=== PATIENT | male | born 1975 | race Caucasian/White ===

== ENCOUNTER 2017-08-25 06:10 | Outpatient (CLI) | payer OTHER | END 2017-08-25 06:48 | disposition home or self-care (01) | LOC: LAB 06:10 | DX: Z11.3 Encounter for screening for infections with a predominantly sexual mode of transmission (principal); R53.1 Weakness ==

== ENCOUNTER → 2017-10-03 06:16 | Outpatient (CLI) | payer OTHER | END | disposition home or self-care (01) | LOC: LAB 06:16 | DX: R94.6 Abnormal results of thyroid function studies (principal); M54.2 Cervicalgia; M25.542 Pain in joints of left hand ==

== ENCOUNTER 2017-10-24 08:16 | Outpatient (CLI) | payer OTHER | END 2017-10-24 08:25 | disposition home or self-care (01) | LOC: SONOGRAMA 08:16 | DX: E04.1 Nontoxic single thyroid nodule (principal) ==

== ENCOUNTER 2018-07-13 06:15 | Outpatient (CLI) | payer OTHER | END 2018-07-13 06:20 | disposition home or self-care (01) | LOC: LAB 06:15 | DX: E78.49 Other hyperlipidemia (principal); R42 Dizziness and giddiness; Z00.00 Encounter for general adult medical examination without abnormal findings; Z11.3 Encounter for screening for infections with a predominantly sexual mode of transmission; Z11.4 Encounter for screening for human immunodeficiency virus [HIV]; J06.9 Acute upper respiratory infection, unspecified ==

== ENCOUNTER 2019-02-08 06:23 | Outpatient (CLI) | payer OTHER | END 2019-02-08 06:28 | disposition home or self-care (01) | LOC: LAB 06:23 | DX: E78.49 Other hyperlipidemia (principal); D64.89 Other specified anemias; N39.0 Urinary tract infection, site not specified; R10.84 Generalized abdominal pain; E03.8 Other specified hypothyroidism; E11.9 Type 2 diabetes mellitus without complications ==

== ENCOUNTER 2019-05-27 06:15 | Outpatient (CLI) | payer OTHER | END 2019-05-27 06:20 | disposition home or self-care (01) | LOC: LAB 06:15 | DX: E78.49 Other hyperlipidemia (principal) ==

== ENCOUNTER 2019-08-06 07:05 | Outpatient (CLI) | payer OTHER | END 2019-08-06 07:14 | disposition home or self-care (01) | LOC: NUCLEAR 07:05 | PROVIDERS: ATTEND Internal Medicine | DX: R07.89 Other chest pain (principal) | CPT/HCPCS: 93306; 78452; 93017; A9500 ==

== ENCOUNTER 2019-08-09 10:28 | Outpatient (CLI) | payer OTHER | END 2019-08-09 10:56 | disposition home or self-care (01) | LOC: RAD 10:28 | PROVIDERS: ATTEND Internal Medicine Pulmonary Disease | DX: J45.31 Mild persistent asthma with (acute) exacerbation (principal); J30.1 Allergic rhinitis due to pollen; G47.33 Obstructive sleep apnea (adult) (pediatric); K21.9 Gastro-esophageal reflux disease without esophagitis; R05 Cough ==

== ENCOUNTER 2019-09-06 07:06 | Outpatient (CLI) | payer OTHER | END 2019-09-06 07:13 | disposition home or self-care (01) | LOC: LAB 07:06 | PROVIDERS: ATTEND Internal Medicine Sports Medicine | DX: R97.20 Elevated prostate specific antigen [PSA] (principal); D64.89 Other specified anemias; E11.9 Type 2 diabetes mellitus without complications; E78.2 Mixed hyperlipidemia; I10 Essential (primary) hypertension; E03.8 Other specified hypothyroidism; E55.9 Vitamin D deficiency, unspecified; Z11.3 Encounter for screening for infections with a predominantly sexual mode of transmission; Z11.4 Encounter for screening for human immunodeficiency virus [HIV] ==

== ENCOUNTER 2019-10-23 11:25 | Outpatient (CLI) | payer OTHER | END 2019-10-23 13:50 | disposition home or self-care (01) | LOC: OFIC 805 11:25 | PROVIDERS: ATTEND Otolaryngology | DX: H60.8X2 Other otitis externa, left ear (principal); H61.22 Impacted cerumen, left ear ==

== ENCOUNTER → 2019-10-29 | Outpatient (CLI) | payer OTHER | END | disposition home or self-care (01) | LOC: PPH VACUNA | DX: Z23 Encounter for immunization (principal) ==

== ENCOUNTER 2019-11-12 08:09 | Outpatient (CLI) | payer OTHER | END 2019-11-12 09:07 | disposition home or self-care (01) | LOC: TOM 08:09 | PROVIDERS: ATTEND Internal Medicine | DX: G44.89 Other headache syndrome (principal) ==

== ENCOUNTER 2020-02-25 06:14 | Outpatient (CLI) | payer OTHER | END 2020-02-25 06:20 | disposition home or self-care (01) | LOC: LAB 06:14 | PROVIDERS: ATTEND Internal Medicine Sports Medicine | DX: D64.89 Other specified anemias (principal); E78.2 Mixed hyperlipidemia; E11.9 Type 2 diabetes mellitus without complications; E03.8 Other specified hypothyroidism; R97.20 Elevated prostate specific antigen [PSA]; E55.0 Rickets, active; E55.9 Vitamin D deficiency, unspecified ==

== ENCOUNTER → 2020-02-25 | Outpatient (CLI) | payer OTHER | END | disposition home or self-care (01) | LOC: SONOGRAMA 07:01 | PROVIDERS: ATTEND Internal Medicine Sports Medicine | DX: E04.2 Nontoxic multinodular goiter (principal) ==

== ENCOUNTER → 2020-06-18 06:11 | Outpatient (CLI) | payer OTHER | END | disposition home or self-care (01) | LOC: LAB 06:11 | PROVIDERS: ATTEND Urology | DX: N30.00 Acute cystitis without hematuria (principal) ==

== ENCOUNTER → 2020-07-27 10:19 | Outpatient (CLI) | payer OTHER | END | disposition home or self-care (01) | LOC: LAB 10:19 | PROVIDERS: ATTEND Radiology Diagnostic Radiology | DX: Z00.00 Encounter for general adult medical examination without abnormal findings (principal) ==

== ENCOUNTER → 2020-08-06 06:27 | Outpatient (CLI) | payer OTHER | END | disposition home or self-care (01) | LOC: LAB 06:27 | PROVIDERS: ATTEND Internal Medicine Sports Medicine | DX: D64.89 Other specified anemias (principal); E11.9 Type 2 diabetes mellitus without complications; E78.2 Mixed hyperlipidemia; I10 Essential (primary) hypertension; E03.8 Other specified hypothyroidism ==

== ENCOUNTER 2020-11-02 08:00 | Outpatient (CLI) | payer OTHER | END 2020-11-02 08:30 | disposition home or self-care (01) | LOC: PPH VACUNA 08:00 | PROVIDERS: ATTEND Emergency Medicine Pediatric Emergency Medicine | DX: Z23 Encounter for immunization (principal) ==

== ENCOUNTER 2021-01-13 07:54 | Outpatient (CLI) | payer OTHER | END 2021-01-13 07:58 | disposition home or self-care (01) | LOC: RX STUDY 07:54 | PROVIDERS: ATTEND Internal Medicine Gastroenterology | DX: K44.9 Diaphragmatic hernia without obstruction or gangrene (principal); R13.14 Dysphagia, pharyngoesophageal phase; R10.13 Epigastric pain; K21.00 Gastro-esophageal reflux disease with esophagitis, without bleeding ==

== ENCOUNTER → 2021-02-04 06:30 | Outpatient (CLI) | payer OTHER | END | disposition home or self-care (01) | LOC: LAB 06:30 | PROVIDERS: ATTEND Internal Medicine Sports Medicine | DX: E03.8 Other specified hypothyroidism (principal); E55.9 Vitamin D deficiency, unspecified; R97.20 Elevated prostate specific antigen [PSA] ==

== ENCOUNTER 2021-05-18 13:56 | Outpatient (CLI) | payer OTHER | END 2021-05-18 13:57 | disposition home or self-care (01) | LOC: RAD 13:56 | PROVIDERS: ATTEND Radiology Diagnostic Radiology | DX: M25.50 Pain in unspecified joint (principal) ==

== ENCOUNTER → 2021-07-21 06:57 | Outpatient (CLI) | payer OTHER | END | disposition home or self-care (01) | LOC: LAB 06:57 | PROVIDERS: ATTEND Internal Medicine Pulmonary Disease | DX: R05.9 Cough, unspecified (principal); R06.02 Shortness of breath; R50.9 Fever, unspecified; Z20.828 Contact with and (suspected) exposure to other viral communicable diseases ==

== ENCOUNTER 2021-08-06 06:12 | Outpatient (CLI) | payer OTHER | END 2021-08-06 06:14 | disposition home or self-care (01) | LOC: LAB 06:12 | PROVIDERS: ATTEND Internal Medicine Sports Medicine | DX: D64.9 Anemia, unspecified (principal); E11.9 Type 2 diabetes mellitus without complications; E78.2 Mixed hyperlipidemia; E03.8 Other specified hypothyroidism; E55.9 Vitamin D deficiency, unspecified ==

== ENCOUNTER 2021-10-12 13:00 | Outpatient (CLI) | payer OTHER | END 2021-10-12 13:03 | disposition home or self-care (01) | LOC: RAD 13:00 | PROVIDERS: ATTEND Radiology Diagnostic Radiology | DX: S62.608A Fracture of unspecified phalanx of other finger, initial encounter for closed fracture (principal) ==

== ENCOUNTER 2021-10-27 08:00 | Outpatient (CLI) | payer OTHER | END 2021-10-27 08:05 | disposition home or self-care (01) | LOC: PPH VACUNA 08:00 | PROVIDERS: ATTEND Emergency Medicine Pediatric Emergency Medicine | DX: Z23 Encounter for immunization (principal) ==

== ENCOUNTER 2022-02-08 06:08 | Outpatient (CLI) | payer OTHER | END 2022-02-08 06:09 | disposition home or self-care (01) | LOC: LAB 06:08 | PROVIDERS: ATTEND Internal Medicine Sports Medicine | DX: E55.9 Vitamin D deficiency, unspecified (principal); R97.20 Elevated prostate specific antigen [PSA]; D64.9 Anemia, unspecified; E11.9 Type 2 diabetes mellitus without complications; E78.2 Mixed hyperlipidemia; E03.8 Other specified hypothyroidism; I10 Essential (primary) hypertension ==

== ENCOUNTER 2022-02-09 07:25 | Outpatient (CLI) | payer OTHER | END 2022-02-09 07:31 | disposition home or self-care (01) | LOC: SONOGRAMA 07:25 | PROVIDERS: ATTEND Internal Medicine Sports Medicine | DX: E04.1 Nontoxic single thyroid nodule (principal) ==

== ENCOUNTER → 2022-04-12 | Outpatient (CLI) | payer OTHER | END | disposition home or self-care (01) | LOC: MRI 06:25 | PROVIDERS: ATTEND Internal Medicine Sports Medicine | DX: M54.2 Cervicalgia (principal); M54.10 Radiculopathy, site unspecified | CPT/HCPCS: 72141 ==

== ENCOUNTER → 2022-09-02 06:53 | Outpatient (CLI) | payer OTHER ==
[~2022-09-02 06:53] MED LIST: MEDROLPACK PO; NORFLEX100MG PO
== END | disposition home or self-care (01) ==
LOC: LAB 06:53
PROVIDERS: ATTEND Internal Medicine Sports Medicine
DX: D64.9 Anemia, unspecified (principal); E11.9 Type 2 diabetes mellitus without complications; E78.2 Mixed hyperlipidemia; I10 Essential (primary) hypertension; E03.8 Other specified hypothyroidism; Z11.3 Encounter for screening for infections with a predominantly sexual mode of transmission

== ENCOUNTER 2022-09-19 12:41 | Outpatient (CLI) | payer OTHER | END 2022-09-19 12:54 | disposition home or self-care (01) | LOC: LAB 12:41 | PROVIDERS: ATTEND Internal Medicine Gastroenterology | DX: Z11.52 Encounter for screening for COVID-19 (principal); Z20.822 Contact with and (suspected) exposure to COVID-19; Z20.828 Contact with and (suspected) exposure to other viral communicable diseases ==

== ENCOUNTER 2022-10-28 16:15 | Outpatient (CLI) | payer OTHER | END 2022-10-28 16:25 | disposition home or self-care (01) | LOC: PPH VACUNA 16:15 | PROVIDERS: ATTEND Emergency Medicine Pediatric Emergency Medicine | DX: Z23 Encounter for immunization (principal) ==

== ENCOUNTER 2023-03-03 07:03 | Outpatient (CLI) | payer OTHER ==
[2023-03-03 08:10] LABS: PH,URINE 8.5 (5.0-8.0); URINE APPEARANCE Clear; URINE BILIRRUBIN Negative (NEGATIVE); URINE BLOOD Negative; URINE COLOR Yellow; URINE GLUCOSE Negative (NEGATIVE); URINE LEUKOCYTE Trace; URINE NITRATE Negative; URINE PROTEIN 30 (NEGATIVE)
[2023-03-03 08:13] LABS: HEMATOCRIT 43.6 % (39.0-48.0); HEMOGLOBIN 14.8 g/dL (13-16.00); MEAN CELL VOLUME 79.7 fL (80.0-100.00); MEAN CORPUSCULAR HEMOGLOBIN 27.1 pg (27.00-32.0); PLATELET COUNT 297 K/uL (150-450); RED BLOOD COUNT 5.47 M/uL (4.00-6.00)
[2023-03-03 08:14] LABS: URINE RBC 3.5 uL (0.0-20.8); URINE WBC 2.1 uL (0.0-23.2)
[2023-03-03 08:24] LABS: URINE BACTERIA 2.5 uL (0.0-1933); URINE EPITHELIAL CELLS 1.3 uL (0.0-38.8)
[2023-03-03 08:42] LABS: BILIRUBIN TOTAL 0.47 mg/dL (0.3-1.2); CALCIUM 9.5 mg/dL (8.5-10.1); CHOL HDL RATIO 4.6 (0-5.0); CREATININE SERUM 1.34 mg/dL (0.70-1.30); GFR 57.14; GLOBULINA 3.2 G/DL (2.4-3.5); POTASSIUM 4.64 mEq/L (3.5-5.1); PROSTATIC SPECIFIC ANTIGEN 0.301 NG/ML (0.010-4.00); T4 FREE 0.93 NG/ML (0.76-1.46); TOTAL PROTEIN 7.2 gm/dL (6.4-8.2); TSH 0.804 uIU/mL (0.358-3.74)
== END 2023-03-03 07:04 | disposition home or self-care (01) ==
LOC: LAB 07:03
PROVIDERS: ATTEND Internal Medicine Sports Medicine
DX: D64.9 Anemia, unspecified (principal); E11.9 Type 2 diabetes mellitus without complications; E78.2 Mixed hyperlipidemia; I10 Essential (primary) hypertension; E03.8 Other specified hypothyroidism

== ENCOUNTER 2023-09-16 08:05 | Outpatient (CLI) | payer OTHER ==
[2023-09-16 09:32] LABS: PH,URINE 5.5 (5.0-8.0); URINE APPEARANCE Clear; URINE BILIRRUBIN Negative (NEGATIVE); URINE BLOOD Negative; URINE COLOR Yellow; URINE GLUCOSE Negative (NEGATIVE); URINE KETONE Negative (NEGATIVE); URINE LEUKOCYTE Negative; URINE NITRATE Negative; URINE PROTEIN Negative (NEGATIVE); URINE UROBILINOGEN 0.2 E.U./dl
[2023-09-16 09:35] LABS: URINE BACTERIA 7.5 uL (0.0-1933); URINE EPITHELIAL CELLS 2.4 uL (0.0-38.8); URINE RBC 2.2 uL (0.0-20.8)
[2023-09-16 09:43] LABS: HEMATOCRIT 44.1 % (39.0-48.0); HEMOGLOBIN 14.8 g/dL (13-16.00); MEAN CELL VOLUME 80.5 fL (80.0-100.00); MEAN CORPUSCULAR HGB CONC 33.6 g/dl (32.0-36.0); PLATELET COUNT 330 K/uL (150-450); RED BLOOD COUNT 5.48 M/uL (4.00-6.00); RED CELL DISTRIBUTION WIDTH 14.9 % (11.5-14.5)
[2023-09-16 10:23] LABS: ALBUMIN 4.1 gm/dL (3.4-5.0); BILIRUBIN TOTAL 0.42 mg/dL (0.3-1.2); CALCIUM 9.2 mg/dL (8.5-10.1); CHOL HDL RATIO 4.4 (0-5.0); CREATININE SERUM 1.21 mg/dL (0.70-1.30); GFR 64.28; GLOBULINA 3.2 G/DL (2.4-3.5); POTASSIUM 4.67 mEq/L (3.5-5.1); PROSTATIC SPECIFIC ANTIGEN 0.316 NG/ML (0.010-4.00); TOTAL PROTEIN 7.3 gm/dL (6.4-8.2); TSH 0.595 uIU/mL (0.358-3.74)
[2023-09-19 11:11] LABS: chla t Negative (Negative); neiss Negative (Negative)
== END 2023-09-16 08:12 | disposition home or self-care (01) ==
LOC: LAB 08:05
PROVIDERS: ATTEND Internal Medicine Sports Medicine
DX: D64.9 Anemia, unspecified (principal); E11.9 Type 2 diabetes mellitus without complications; E78.2 Mixed hyperlipidemia; I10 Essential (primary) hypertension; E03.8 Other specified hypothyroidism; Z11.3 Encounter for screening for infections with a predominantly sexual mode of transmission

== ENCOUNTER 2023-10-06 08:38 | Outpatient (CLI) | payer OTHER | END 2023-10-06 08:41 | disposition home or self-care (01) | LOC: RAD 08:38 | PROVIDERS: ATTEND Radiology Diagnostic Radiology | DX: J06.9 Acute upper respiratory infection, unspecified (principal) ==

== ENCOUNTER 2023-11-30 16:14 | Emergency (ER) | payer OTHER ==
[~2023-11-30] VITALS: Ht 170.2 cm; Wt 90.7 kg
[2023-11-30] MEDS ORDERED: NORFLEX100MG PO (16:37)
[2023-11-30] MEDS ORDERED: DICLOFENAC SODI75 MG PO (16:37)
[2023-11-30] MEDS ORDERED: TRIAMCINOLONE ACETONIDE 40 MG/ML VIAL IM ONE (16:45)
[2023-11-30] MEDS ORDERED: KETOROLAC TROMETHAMINE 60 MG VIAL IM ONE (16:45)
[2023-11-30 17:47] VITALS: BP 150/83; O2SAT 99
== END 2023-11-30 17:48 | disposition home or self-care (01) ==
LOC: ER 16:14
DX: M54.9 Dorsalgia, unspecified (principal); M62.830 Muscle spasm of back

== ENCOUNTER 2023-12-08 02:30 | Outpatient (CLI) | payer OTHER ==
[~2023-12-08 02:30] MED LIST changes: +DICLOFENAC SODI75 MG PO
== END 2023-12-08 03:00 | disposition home or self-care (01) ==
LOC: PPH VACUNA 02:30
PROVIDERS: ATTEND Emergency Medicine Pediatric Emergency Medicine
DX: Z23 Encounter for immunization (principal)

== ENCOUNTER 2024-09-24 10:22 | Outpatient (CLI) | payer OTHER ==
[2024-09-26 05:07] LABS: HEPATITIS A ANTIBODY IGG Negative (Negative); HEPATITIS B SURFACE ANTIBODY Reactive (.); HEPATITIS C VIRUS ANTIBODY Non Reactive (Non Reactive)
== END 2024-09-24 10:27 | disposition home or self-care (01) ==
LOC: LAB 10:22
DX: A64 Unspecified sexually transmitted disease (principal); B19.9 Unspecified viral hepatitis without hepatic coma

== ENCOUNTER 2024-10-03 06:44 | Outpatient (CLI) | payer OTHER ==
[2024-10-03 07:41] LABS: BASO % 0.4 % (0.1-1.2); EOS # 0.10 (0.04-0.54); EOS % 1.9 % (0.7-7.0); LYMPH # 1.49 (1.18-3.74); LYMPH % 28.0 % (19.3-53.1); MEAN PLATELET VOLUME 9.20 fl (9.4-12.4); MONO # 0.53 (0.24-0.82); MONO % 10.0 % (4.7-12.5); NEUT # 3.17 (1.56-6.13); NEUT % 59.5 % (34.0-71.1); RED CELL DISTRIBUTION WIDTH 14.0 % (11.6-14.4)
[2024-10-03 07:44] LABS: URINE APPEARANCE Clear; URINE BILIRRUBIN Negative (NEGATIVE); URINE BLOOD Negative; URINE COLOR Yellow; URINE GLUCOSE Negative (NEGATIVE); URINE KETONE Trace (NEGATIVE); URINE LEUKOCYTE Negative; URINE NITRATE Negative; URINE PROTEIN Trace (NEGATIVE); URINE UROBILINOGEN 1.0 E.U./dl
[2024-10-03 07:49] LABS: URINE BACTERIA 20.3 uL (0.0-1933); URINE EPITHELIAL CELLS 3.3 uL (0.0-38.8); URINE RBC 2.4 uL (0.0-20.8); URINE WBC 6.6 uL (0.0-23.2)
[2024-10-03 07:54] LABS: URINE CAST 0.14 uL (0.0-1.40)
[2024-10-03 08:32] LABS: ALT/SGPT 47.0 U/L (12-78); AST/SGOT 19.0 U/L (15-37); BILIRUBIN TOTAL 0.48 mg/dL (0.3-1.2); BUN CREA RATIO 12.0 (7.0-25.0); CHOL HDL RATIO 3.3 (0-5.0); CREATININE SERUM 1.27 mg/dL (0.70-1.30); GFR 60.53; GLOBULINA 3.3 G/DL (2.4-3.5); GLUCOSE FASTING 93.0 mg/dL (65-100); HDL 40.0 mg/dl (40-60); LDL 75.0 mg/dl (0-130); OSMOLALITY SERUM 287.0 MOSM/KG (275-295); PROSTATIC SPECIFIC ANTIGEN 0.276 NG/ML (0.010-4.00); T4 FREE 1.0 NG/ML (0.76-1.46); TSH 0.678 uIU/mL (0.358-3.74); VLDL 18.0 (0-39)
== END 2024-10-03 06:51 | disposition home or self-care (01) ==
LOC: LAB 06:44
PROVIDERS: ATTEND Internal Medicine Sports Medicine
DX: R97.20 Elevated prostate specific antigen [PSA] (principal); M81.0 Age-related osteoporosis without current pathological fracture; N40.0 Benign prostatic hyperplasia without lower urinary tract symptoms; E55.9 Vitamin D deficiency, unspecified

== ENCOUNTER 2024-10-03 09:17 | Outpatient (CLI) | payer OTHER | END 2024-10-03 09:20 | disposition home or self-care (01) | LOC: SONOGRAMA 09:17 | PROVIDERS: ATTEND Internal Medicine Sports Medicine | DX: E04.1 Nontoxic single thyroid nodule (principal); E04.9 Nontoxic goiter, unspecified ==

== ENCOUNTER 2024-12-10 13:40 | Outpatient (CLI) | payer OTHER | END 2024-12-10 13:50 | disposition home or self-care (01) | LOC: PPH VACUNA 13:40 | PROVIDERS: ATTEND Emergency Medicine Pediatric Emergency Medicine | DX: Z23 Encounter for immunization (principal) ==